=== PATIENT | female | born 1950 | race American Indian/Alaskan Native ===

== ENCOUNTER 2021-10-25 07:28 | Emergency (ER) | payer SELFPAY ==
[2021-10-25] MEDS ORDERED: LIP THERAPY VASELINE TP PRN (07:49)
[2021-10-25] MEDS ORDERED: SODIUM CHLORIDE 0.9% 1000 ML 2,000 ML ONE ×2 (07:49)
[2021-10-25] MEDS ORDERED: MINERAL OIL/PETROLATUM, WHITE OPHTH OINT 3.5 GM OU PRN (07:49)
[2021-10-25] MEDS ORDERED: SODIUM CHLORIDE 0.9% 1000 ML 1,000 ML IV ONE ×2 (07:54→08:35)
--- NOTE | 2021-10-25 07:59 | Emergency Department Report ---
ED CPR HPI - General Stated Complaint: CARDIAC ARREST Time Seen by Provider: 10/25/21 07:49 Source: EMS Mode of arrival: Stretcher Limitations: Altered Mental Status, Physical Limitation - History of Present Illness Initial Comments: 70-year-old female with an unknown past medical history presents to the hospital after witnessed cardiac arrest at the airport while disembarking a flight from [facility]. Patient apparently leaned up against a wall of the jet way and passed out. EMS at the scene at 6:50 AM and report initial rhythm was asystole. And provided CPR and 1 dose of epinephrine at 6:55 AM. Patient had return of spontaneous circulation immediately however, lost her pulse again in route to the hospital at approximately 7:11 AM and received second dose of epinephrine with again and spontaneous circulation. Patient presents to the ED with a narrow complex rhythm with a palpable pulse. She is intubated with the I gel airway upon arrival. Reported accucheck 163. Daughter reports history of hypertension and no drug allergies ED Review of Systems ROS: Stated complaint: CARDIAC ARREST Other details as noted in HPI Comment: Unobtainable due to pts medical conditions ED Physical Exam - Other Other exam information: General: Lumbar spine Head: Atraumatic Eyes: Pupils approximately 3 mm and reactive, equal ENT: Moist mucous membranes, orally intubated with I gel airway Neck: Normal appearance, no midline tenderness Chest: Clear to auscultation bilaterally with bagging CV: Regular rate and rhythm, palpable pulse Abdomen: Soft, normal bowel sounds, nontender, nondistended, no rebound or guarding Back: Normal inspection Extremity: Normal inspection Neuro: GCS 3 upon arrival Psych: Unresponsive Skin: No rash, warm to touch ED Course Vital Signs 10/25/21 10/25/21 10/25/21 07:50 08:00 09:00 Temperature 97.8 F Pulse Rate 70 78 71 Respiratory 12 16 Rate Blood Pressure 121/72 144/92 114/67 O2 Sat by Pulse 98 100 96 Oximetry 10/25/21 10/25/21 10/25/21 09:51 10:00 11:53 Temperature Pulse Rate 59 L 62 66 Respiratory 16 16 16 Rate Blood Pressure 90/57 129/81 117/74 O2 Sat by Pulse 100 99 100 Oximetry - Reevaluation(s) Reevaluation #1: 10/25/21 09:45 Spoke to patient's daughters (Josemanuel Tilley and Sandra Catherine) via phone and provided update regarding current medical condition status postcardiac arrest and currently on ventilator. Both of her daughters reside in [place]. [place] is boarding a plane and headed to [place] with arrival scheduled in approx 2 hours. Contact info provided to registration 10/25/21 - Consultations Consultation #1: 10/25/21 10:33 call placed to [facility] transfer, awaiting call back from vascular surgeon 10/25/21 11:[address] Loera CT surgeon at [facility], awaiting bed assigned 10/25/21 12:45 Case discussed with cardiothoracic surgery at [facility]. Dr. Aranda was to CT surgeon. Unfortunately they cannot accept patient at this time because they are over capacity. Patient will be placed on the waiting list but is unlikely that bed will be available today 12: 55 [place] [facility] is on diversion except for trauma and acute stroke intervention 1 PM: [facility] is on total diversion 1:51 PM: [facility] called with a bed, transport will be here in 5 min. Daughter at bedside Informed. 10/25/21 14:00 case d/w ICU LYDIA [facility] at [facility] - Central Line Placement Right Femoral Consent Obtained: emergent situation Time Out Performed: Yes Patient Placed on Monitor/Pulse Ox: Yes MD Prep: mask, gown, gloves Central Line Prep: Chlorhexidine scrub, sterile drapes applied Local Anesthesia Used: other anesthetic Ultrasound Used for Placement: No Central Line Lumen Inserted: triple Reason for Insertion: Emergency Venous Access Bloods Obtained for Lab: Yes Central Line Position: good blood return, all ports aspirated, flus, sutured in place with nyl Dressing Applied: Tegaderm Patient Tolerated Procedure: well, no complications Complications: none - Intubation Time Out Performed: Yes Sedative: Etomidate Mg Given: 20 Paralytic: Succinylcholine Mg Given: 100 Laryngoscope: fiberoptic video scope Size: 3 ET Tube Size: 7.5 Tube Secured Depth (cm): 23 Tube Secured Location: teeth Tube Placement Confirmation: visualized tube passing t, equal breath sounds bilat, no breath sounds over epi, confirmation by capnometr Patient Tolerated Procedure: well, no complications Intubation Complications: none ED Medical Decision Making - Lab Data Result diagrams: 10/25/21 Unknown 10/25/21 Unknown Lab Results 10/25/21 10/25/21 10/25/21 Range/Units 07:37 08:45 10:06 WBC (4.5-11.0) K/mm3 RBC (3.65-5.03) M/mm3 Hgb (10.1-14.3) gm/dl Hct (30.3-42.9) % MCV (79-97) fl MCH (28-32) pg MCHC (30-34) % RDW (13.2-15.2) % Plt Count (140-440) K/mm3 Lymph % (Auto) (13.4-35.0) % [place] % (Auto) (0.0-7.3) % Eos % (Auto) (0.0-4.3) % Baso % (Auto) (0.0-1.8) % Lymph # (Auto) (1.2-5.4) K/mm3 [place] # (Auto) (0.0-0.8) K/mm3 Eos # (Auto) (0.0-0.4) K/mm3 Baso # (Auto) (0.0-0.1) K/mm3 Seg Neutrophils % (40.0-70.0) % Seg Neutrophils # (1.8-7.7) K/mm3 PT (12.2-14.9) Sec. INR (0.87-1.13) APTT (24.2-36.6) Sec. D-Dimer (0-234) ng/mlDDU ABG pH 7.345 L (7.350-7.450) pH Units ABG pCO2 34.3 mm Hg ABG pO2 86.5 (80.0-90.0) mm Hg ABG HCO3 18.3 L (20.0-26.0) mmol/L ABG O2 Saturation 96.7 (95.0-99.0) % ABG O2 Content 16.3 (0.0-44) ABG Base Excess -6.6 L (-2.0-3.0) mmol/L ABG Hemoglobin 12.1 (12.0-16.0) gm/dl ABG Carboxyhemoglobin 1.0 (0.0-5.0) % ABG Methemoglobin 0.4 (0.0-1.5) % Oxyhemoglobin 95.4 (95.0-99.0) % FiO2 50 % Sodium (137-145) mmol/L Potassium (3.6-5.0) mmol/L Chloride (98-107) mmol/L Carbon Dioxide (22-30) mmol/L Anion Gap mmol/L BUN (7-17) mg/dL Creatinine (0.6-1.2) mg/dL Estimated GFR ml/min BUN/Creatinine Ratio % Glucose (65-100) mg/dL POC Glucose 257 H (70-105) mg/dL Lactic Acid (0.7-2.0) mmol/L Calcium (8.4-10.2) mg/dL Magnesium (1.7-2.3) mg/dL Total Bilirubin (0.1-1.2) mg/dL AST (5-40) units/L ALT (7-56) units/L Alkaline Phosphatase (35-129) units/L Troponin T 0.072 H D (0.00-0.029) ng/mL Total Protein (6.3-8.2) g/dL Albumin (3.9-5) g/dL Albumin/Globulin Ratio % Triglycerides 95 (2-149) mg/dL Cholesterol 205 H (50-199) mg/dL LDL Cholesterol Direct 114 (50-130) mg/dL HDL Cholesterol 76 H (40-59) mg/dL Cholesterol/HDL Ratio 2.69 % Urine Color (Yellow) Urine Turbidity (Clear) Urine pH (5.0-7.0) Ur Specific [place] (1.003-1.030) Urine Protein (Negative) mg/dL Urine Glucose (UA) (Negative) mg/dL Urine Ketones (Negative) mg/dL Urine Blood (Negative) Urine Nitrite (Negative) Urine Bilirubin (Negative) Urine Urobilinogen (<2.0) mg/dL Ur Leukocyte Esterase (Negative) Urine WBC (Auto) (0.0-6.0) /HPF Urine RBC (Auto) (0.0-6.0) /HPF U Epithel Cells (Auto) (0-13.0) /HPF Urine Bacteria (Auto) (Negative) /HPF Urine Mucus /HPF Urine Opiates Screen Urine Methadone Screen Ur Barbiturates Screen Ur Phencyclidine Scrn Ur Amphetamines Screen U Benzodiazepines Scrn Urine Cocaine Screen U Marijuana (THC) Screen Drugs of Abuse Note 05/10/25/21 10/25/21 Range/Units 10:06 Unknown Unknown WBC 15.0 H (4.5-11.0) K/mm3 RBC 4.29 (3.65-5.03) M/mm3 Hgb 11.4 (10.1-14.3) gm/dl Hct 36.8 (30.3-42.9) % MCV 86 (79-97) fl MCH 27 L (28-32) pg MCHC 31 (30-34) % RDW 16.1 H (13.2-15.2) % Plt Count 182 (140-440) K/mm3 Lymph % (Auto) 20.8 (13.4-35.0) % [place] % (Auto) 2.2 (0.0-7.3) % Eos % (Auto) 1.6 (0.0-4.3) % Baso % (Auto) 0.2 (0.0-1.8) % Lymph # (Auto) 3.1 (1.2-5.4) K/mm3 [place] # (Auto) 0.3 (0.0-0.8) K/mm3 Eos # (Auto) 0.2 (0.0-0.4) K/mm3 Baso # (Auto) 0.0 (0.0-0.1) K/mm3 Seg Neutrophils % 75.2 H (40.0-70.0) % Seg Neutrophils # 11.3 H (1.8-7.7) K/mm3 PT 18.0 H (12.2-14.9) Sec. INR 1.32 H (0.87-1.13) APTT 49.4 H (24.2-36.6) Sec. D-Dimer > 55879 H (0-234) ng/mlDDU ABG pH (7.350-7.450) pH Units ABG pCO2 mm Hg ABG pO2 (80.0-90.0) mm Hg ABG HCO3 (20.0-26.0) mmol/L ABG O2 Saturation (95.0-99.0) % ABG O2 Content (0.0-44) ABG Base Excess (-2.0-3.0) mmol/L ABG Hemoglobin (12.0-16.0) gm/dl ABG Carboxyhemoglobin (0.0-5.0) % ABG Methemoglobin (0.0-1.5) % Oxyhemoglobin (95.0-99.0) % FiO2 % Sodium (137-145) mmol/L Potassium (3.6-5.0) mmol/L Chloride (98-107) mmol/L Carbon Dioxide (22-30) mmol/L Anion Gap mmol/L BUN (7-17) mg/dL Creatinine (0.6-1.2) mg/dL Estimated GFR ml/min BUN/Creatinine Ratio % Glucose (65-100) mg/dL POC Glucose (70-105) mg/dL Lactic Acid 4.70 H* (0.7-2.0) mmol/L Calcium (8.4-10.2) mg/dL Magnesium (1.7-2.3) mg/dL Total Bilirubin (0.1-1.2) mg/dL AST (5-40) units/L ALT (7-56) units/L Alkaline Phosphatase (35-129) units/L Troponin T (0.00-0.029) ng/mL Total Protein (6.3-8.2) g/dL Albumin (3.9-5) g/dL Albumin/Globulin Ratio % Triglycerides (2-149) mg/dL Cholesterol (50-199) mg/dL LDL Cholesterol Direct (50-130) mg/dL HDL Cholesterol (40-59) mg/dL Cholesterol/HDL Ratio % Urine Color (Yellow) Urine Turbidity (Clear) Urine pH (5.0-7.0) Ur Specific [place] (1.003-1.030) Urine Protein (Negative) mg/dL Urine Glucose (UA) (Negative) mg/dL Urine Ketones (Negative) mg/dL Urine Blood (Negative) Urine Nitrite (Negative) Urine Bilirubin (Negative) Urine Urobilinogen (<2.0) mg/dL Ur Leukocyte Esterase (Negative) Urine WBC (Auto) (0.0-6.0) /HPF Urine RBC (Auto) (0.0-6.0) /HPF U Epithel Cells (Auto) (0-13.0) /HPF Urine Bacteria (Auto) (Negative) /HPF Urine Mucus /HPF Urine Opiates Screen Urine Methadone Screen Ur Barbiturates Screen Ur Phencyclidine Scrn Ur Amphetamines Screen U Benzodiazepines Scrn Urine Cocaine Screen U Marijuana (THC) Screen Drugs of Abuse Note 10/25/21 10/25/21 10/25/21 Range/Units Unknown Unknown Unknown WBC (4.5-11.0) K/mm3 RBC (3.65-5.03) M/mm3 Hgb (10.1-14.3) gm/dl Hct (30.3-42.9) % MCV (79-97) fl MCH (28-32) pg MCHC (30-34) % RDW (13.2-15.2) % Plt Count (140-440) K/mm3 Lymph % (Auto) (13.4-35.0) % [place] % (Auto) (0.0-7.3) % Eos % (Auto) (0.0-4.3) % Baso % (Auto) (0.0-1.8) % Lymph # (Auto) (1.2-5.4) K/mm3 [place] # (Auto) (0.0-0.8) K/mm3 Eos # (Auto) (0.0-0.4) K/mm3 Baso # (Auto) (0.0-0.1) K/mm3 Seg Neutrophils % (40.0-70.0) % Seg Neutrophils # (1.8-7.7) K/mm3 PT (12.2-14.9) Sec. INR (0.87-1.13) APTT (24.2-36.6) Sec. D-Dimer (0-234) ng/mlDDU ABG pH (7.350-7.450) pH Units ABG pCO2 mm Hg ABG pO2 (80.0-90.0) mm Hg ABG HCO3 (20.0-26.0) mmol/L ABG O2 Saturation (95.0-99.0) % ABG O2 Content (0.0-44) ABG Base Excess (-2.0-3.0) mmol/L ABG Hemoglobin (12.0-16.0) gm/dl ABG Carboxyhemoglobin (0.0-5.0) % ABG Methemoglobin (0.0-1.5) % Oxyhemoglobin (95.0-99.0) % FiO2 % Sodium 137 (137-145) mmol/L Potassium 4.3 (3.6-5.0) mmol/L Chloride 103.1 (98-107) mmol/L Carbon Dioxide 16 L (22-30) mmol/L Anion Gap 22 mmol/L BUN 19 H (7-17) mg/dL Creatinine 1.3 H (0.6-1.2) mg/dL Estimated GFR 41 ml/min BUN/Creatinine Ratio 15 % Glucose 256 H (65-100) mg/dL POC Glucose (70-105) mg/dL Lactic Acid (0.7-2.0) mmol/L Calcium 9.4 (8.4-10.2) mg/dL Magnesium 2.10 (1.7-2.3) mg/dL Total Bilirubin 0.30 (0.1-1.2) mg/dL AST 246 H (5-40) units/L ALT 127 H (7-56) units/L Alkaline Phosphatase 83 (35-129) units/L Troponin T < 0.010 (0.00-0.029) ng/mL Total Protein 6.0 L (6.3-8.2) g/dL Albumin 3.6 L (3.9-5) g/dL Albumin/Globulin Ratio 1.5 % Triglycerides (2-149) mg/dL Cholesterol (50-199) mg/dL LDL Cholesterol Direct (50-130) mg/dL HDL Cholesterol (40-59) mg/dL Cholesterol/HDL Ratio % Urine Color Yellow (Yellow) Urine Turbidity Cloudy (Clear) Urine pH 6.0 (5.0-7.0) Ur Specific [place] 1.018 (1.003-1.030) Urine Protein 30 mg/dl (Negative) mg/dL Urine Glucose (UA) Neg (Negative) mg/dL Urine Ketones Neg (Negative) mg/dL Urine Blood Neg (Negative) Urine Nitrite Neg (Negative) Urine Bilirubin Neg (Negative) Urine Urobilinogen < 2.0 (<2.0) mg/dL Ur Leukocyte Esterase Lg (Negative) Urine WBC (Auto) 77.0 H (0.0-6.0) /HPF Urine RBC (Auto) 7.0 (0.0-6.0) /HPF U Epithel Cells (Auto) 38.0 H (0-13.0) /HPF Urine Bacteria (Auto) 4+ (Negative) /HPF Urine Mucus 3+ /HPF Urine Opiates Screen Negative Urine Methadone Screen Negative Ur Barbiturates Screen Negative Ur Phencyclidine Scrn Negative Ur Amphetamines Screen Negative U Benzodiazepines Scrn Negative Urine Cocaine Screen Negative U Marijuana (THC) Screen Negative Drugs of Abuse Note Disclamer 10/25/21 Range/Units Unknown WBC (4.5-11.0) K/mm3 RBC (3.65-5.03) M/mm3 Hgb (10.1-14.3) gm/dl Hct (30.3-42.9) % MCV (79-97) fl MCH (28-32) pg MCHC (30-34) % RDW (13.2-15.2) % Plt Count (140-440) K/mm3 Lymph % (Auto) (13.4-35.0) % [place] % (Auto) (0.0-7.3) % Eos % (Auto) (0.0-4.3) % Baso % (Auto) (0.0-1.8) % Lymph # (Auto) (1.2-5.4) K/mm3 [place] # (Auto) (0.0-0.8) K/mm3 Eos # (Auto) (0.0-0.4) K/mm3 Baso # (Auto) (0.0-0.1) K/mm3 Seg Neutrophils % (40.0-70.0) % Seg Neutrophils # (1.8-7.7) K/mm3 PT (12.2-14.9) Sec. INR (0.87-1.13) APTT (24.2-36.6) Sec. D-Dimer (0-234) ng/mlDDU ABG pH (7.350-7.450) pH Units ABG pCO2 mm Hg ABG pO2 (80.0-90.0) mm Hg ABG HCO3 (20.0-26.0) mmol/L ABG O2 Saturation (95.0-99.0) % ABG O2 Content (0.0-44) ABG Base Excess (-2.0-3.0) mmol/L ABG Hemoglobin (12.0-16.0) gm/dl ABG Carboxyhemoglobin (0.0-5.0) % ABG Methemoglobin (0.0-1.5) % Oxyhemoglobin (95.0-99.0) % FiO2 % Sodium (137-145) mmol/L Potassium (3.6-5.0) mmol/L Chloride (98-107) mmol/L Carbon Dioxide (22-30) mmol/L Anion Gap mmol/L BUN (7-17) mg/dL Creatinine (0.6-1.2) mg/dL Estimated GFR ml/min BUN/Creatinine Ratio % Glucose (65-100) mg/dL POC Glucose (70-105) mg/dL Lactic Acid 8.80 H* (0.7-2.0) mmol/L Calcium (8.4-10.2) mg/dL Magnesium (1.7-2.3) mg/dL Total Bilirubin (0.1-1.2) mg/dL AST (5-40) units/L ALT (7-56) units/L Alkaline Phosphatase (35-129) units/L Troponin T (0.00-0.029) ng/mL Total Protein (6.3-8.2) g/dL Albumin (3.9-5) g/dL Albumin/Globulin Ratio % Triglycerides (2-149) mg/dL Cholesterol (50-199) mg/dL LDL Cholesterol Direct (50-130) mg/dL HDL Cholesterol (40-59) mg/dL Cholesterol/HDL Ratio % Urine Color (Yellow) Urine Turbidity (Clear) Urine pH (5.0-7.0) Ur Specific [place] (1.003-1.030) Urine Protein (Negative) mg/dL Urine Glucose (UA) (Negative) mg/dL Urine Ketones (Negative) mg/dL Urine Blood (Negative) Urine Nitrite (Negative) Urine Bilirubin (Negative) Urine Urobilinogen (<2.0) mg/dL Ur Leukocyte Esterase (Negative) Urine WBC (Auto) (0.0-6.0) /HPF Urine RBC (Auto) (0.0-6.0) /HPF U Epithel Cells (Auto) (0-13.0) /HPF Urine Bacteria (Auto) (Negative) /HPF Urine Mucus /HPF Urine Opiates Screen Urine Methadone Screen Ur Barbiturates Screen Ur Phencyclidine Scrn Ur Amphetamines Screen U Benzodiazepines Scrn Urine Cocaine Screen U Marijuana (THC) Screen Drugs of Abuse Note - EKG Data -: EKG Interpreted by Me (lafb) EKG shows normal: sinus rhythm (no stemi), ST-T waves (no stemi) Rate: normal - EKG Data When compared to previous EKG there are: previous EKG unavailable - Radiology Data Radiology results: report reviewed CHEST 1 VIEW 10/25/2021 7:10 AM INDICATION / CLINICAL INFORMATION: ETT placement. COMPARISON: None available. FINDINGS: SUPPORT DEVICES: The endotracheal tube terminates 5 cm superior to the brigida. Nasogastric tube is followed to the mid stomach although the distal tip is not included. Cardiac defibrillator pads overlie the heart shadow. HEART / MEDIASTINUM: Mild cardiomegaly. LUNGS / PLEURA: No significant pulmonary or pleural abnormality. No pneumothorax. ADDITIONAL FINDINGS: No significant additional findings. IMPRESSION: 1. Adequate placement of the endotracheal tube. 2. Mild cardiomegaly. CT BRAIN: 10/25/2021 INDICATION / CLINICAL INFORMATION: COLLAPSE, POST ARREST. COMPARISON: None available. FINDINGS: BRAIN/INTRACRANIAL STRUCTURES: Unenhanced CT images of the brain demonstrate no evidence of acute abnormality. Ventricles and sulci are normal in size and shape. There is no evidence of hemorrhage or mass. There are no abnormal extra-axial fluid collections. There is a tube coiled in the posterior aspect of the oral pharynx. EXTRACRANIAL STRUCTURES: Unremarkable. IMPRESSION: No acute intracranial abnormality. Tubing coiled posterior oropharynx. CT CERVICAL SPINE: 10/25/2021 INDICATION / CLINICAL INFORMATION: COLLAPSE, POST ARREST. COMPARISON: None available. FINDINGS: CT images of the cervical spine were obtained. Images are evaluated in the axial, coronal, and sagittal planes. Is no evidence of acute abnormality. Reversal of cervical lordosis is centered at the C5 level with the patient positioned for this exam. Vertebral body height and alignment is well preserved. There is no evidence of fracture. CRANIOCERVICAL JUNCTION: Unremarkable. PARASPINAL STRUCTURES: Endotracheal tube and nasogastric tube are present. The upper portion of the nasogastric tube appears to be coiled in the posterior oropharynx. CTA CHEST, ABDOMEN, AND PELVIS WITH CONTRAST INDICATION / CLINICAL INFORMATION: COLLAPSE, POST ARREST 100 ML OMNI 350 . TECHNIQUE: Axial CT images were obtained through the chest, abdomen, and pelvis after injection of 100 cc of Omnipaque 350 IV contrast. 3 plane MIP and/or 3D reconstructions were produced. All CT scans at this location are performed using CT dose reduction for ALARA by means of automated exposure control. COMPARISON: None available. FINDINGS: Chest: There is acute intramural hematoma extending from the distal ascending aorta, through the arch and distally to the distal descending thoracic aorta. Small ulcer-like area of intimal disruption is seen in the distal arch past the level of the left subclavian artery origin, measuring 1.3 cm (series 2 image 33). There is dissection extending from the distal arch to the right iliac bifurcation, as detailed below. The thoracic aorta is nondilated. There is moderate mediastinal hematoma and moderate volume high density pericardial fluid, likely reflecting hemopericardium. The great vessels appear patent. No central or segmental pulmonary embolus. Small left and trace right pleural effusions with bibasilar volume loss and mild scattered interstitial edema. No pneumothorax. No acute osseous findings. Endotracheal tube terminates in the midtrachea. Abdomen/pelvis: Dissection extends from the chest (detailed above) to the level of the right iliac bifurcation. There is no dissection flap extending into the left iliac vessels. The celiac, SMA, and left renal artery are supplied by the true lumen. The right renal artery is poorly opacified and at least partially occluded. SHA is not seen. Dissection of the right common iliac artery, likely extending into the origin of the right external iliac artery. The iliac vessels are patent. Nonspecific mild periportal edema. Gallbladder, pancreas, spleen, and adrenals are unremarkable. There is mild diminished enhancement of the right kidney, concerning for early renal infarct. No hydronephrosis. Hatch catheter decompresses the bladder. Enteric catheter terminates in the stomach. Stomach and small bowel are normal in caliber. No small bowel inflammation. There is moderate stool and fluid distending the colon without significant colonic wall thickening. Normal appendix. No intraperitoneal free air. No free fluid or organized collection. No acute osseous findings. Right iliac catheter extends to the distal right iliac vein. IMPRESSION: 1. Acute aortic injury with prominent intramural hematoma extending from the distal ascending aorta to the distal descending thoracic aorta with moderate mediastinal hematoma and hemopericardium. 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 2. 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 3. Small left and trace right pleural effusions with bibasilar volume loss or edema. 4. Moderate stool and fluid distended colon without significant bowel wall thickening to suggest bowel ischemia. 5. Satisfactory position of support devices, as above. - Medical Decision Making 70-year-old female presents to the hospital status post cardiopulmonary arrest. Patient presented with I gel airway and was intubated shortly after ED arrival. Central line placed. Patient received normal saline IV fluid bolus as well as propofol drip for sedation. ED work-up reveals significant aortic dissection with intramural thrombus, hemomediastinum and hemopericardium. Patient maintained vital signs without vasopressor support in the ED and systolic remained less than 150. Daughter flew from [place] and presented to the ED. Patient required transport to facility with cardiovascular surgeons who can perform acute intervention for the aortic dissection. I called multiple facilities for emergent transfer due to need for cardiothoracic surgery and vascular surgery. patient has been accepted and will be transferred to [facility]. Lactic acidosis noticed likely secondary to tissue ischemia due to cardiopulmonary arrest. Trending downward with IV hydration ABG shows mild metabolic acidosis. Saturating adequately on 50% FiO2 Second troponin mildly elevated compared to first blood draw Juanito Abernathy provided a copy of aortic dissection discharge instructions for education about her mother's diagnosis Critical Care Time: Yes Critical care time in (mins) excluding proc time.: 75 Critical care attestation.: If time is entered above; I have spent that time in minutes in the direct care of this critically ill patient, excluding procedure time. Critical Care Time: 75 Minutes of critical care time excluding procedures were used in the care of the patient. I came immediately to the bedside upon patient's arrival. I obt ained history from EMS at the bedside. I discussed treatment plan with the nursing team members.I spoke with family to obtain medical history. Patient required multiple interventions and reassessments. Multiple calls were made to facilities for emergent transfer ED Disposition Clinical Impression: Acute thoracic aortic dissection, Cardiopulmonary arrest with successful resuscitation Disposition: 02 [facility] Is pt being admited?: No Condition: Serious Referrals: PRIMARY CARE, [Primary Care Provider] - 3-5 Days Time of Disposition: 14:04 (accepted to [facility])
[2021-10-25 08:13] LABS: Basophils % (Auto) 0.2 % (0.0-1.8); Eosinophils # (Auto) 0.2 K/mm3 (0.0-0.4); Eosinophils % (Auto) 1.6 % (0.0-4.3); Hematocrit 36.8 % (30.3-42.9); Hemoglobin 11.4 gm/dl (10.1-14.3); Lymphocytes # (Auto) 3.1 K/mm3 (1.2-5.4); Lymphocytes % (Auto) 20.8 % (13.4-35.0); Mean Corpuscular HGB Conc 31 % (30-34); Mean Corpuscular Volume 86 fl (79-97); Monocytes # (Auto) 0.3 K/mm3 (0.0-0.8); Monocytes % (Auto) 2.2 % (0.0-7.3); Platelet Count 182 K/mm3 (140-440); Red Blood Count 4.29 M/mm3 (3.65-5.03); Red Cell Distribution Width 16.1 % (13.2-15.2)
--- NOTE | 2021-10-25 08:16 | XRay Report ---
CHEST 1 VIEW 10/25/2021 7:10 AM INDICATION / CLINICAL INFORMATION: ETT placement. COMPARISON: None available. FINDINGS: SUPPORT DEVICES: The endotracheal tube terminates 5 cm superior to the brigida. Nasogastric tube is fo llowed to the mid stomach although the distal tip is not included. Cardiac defibrillator pads overlie the heart shadow. HEART / MEDIASTINUM: Mild cardiomegaly. LUNGS / PLEURA: No significant pulmonary or pleural abnormality. No pneumothorax. ADDITIONAL FINDINGS: No significant additional findings. IMPRESSION: 1. Adequate placement of the endotracheal tube. 2. Mild cardiomegaly. Signer Name: Pastor Husain Jr, MD Signed: 10/25/2021 8:12 AM Workstation Name: [id number]
[2021-10-25 08:23] LABS: Amphetamine Screen,Urine Negative; Bacteria,Urine 4+ /HPF (Negative); Benzodiazepines Screen,Urine Negative; Bilirubin,Urine NEG (Negative); Blood,Urine NEG (Negative); Cannabinoid Screen,Urine Negative; Cocaine Screen,Urine Negative; Color,Urine Yellow (Yellow); INR 1.32 (0.87-1.13); Methadone Screen,Urine Negative; Mucus,Urine 3+ /HPF; Opiate Screen,Urine Negative; Urobilinogen,Urine < 2.0 mg/dL (<2.0)
[2021-10-25 08:24] LABS: Partial Thromboplastin Time 49.4 Sec. (24.2-36.6)
[2021-10-25 08:27] LABS: Alanine Aminotransferase 127 units/L (7-56); Albumin 3.6 g/dL (3.9-5); BUN/Creatinine Ratio 15; Blood Urea Nitrogen 19 mg/dL (7-17); Calcium 9.4 mg/dL (8.4-10.2); Hemolysis Index 15
[2021-10-25 09:10] LABS: ABG Base Excess -6.6 mmol/L (-2.0-3.0); ABG HCO3 18.3 mmol/L (20.0-26.0); ABG Methemoglobin 0.4 % (0.0-1.5); ABG Oxygen Saturation 96.7 % (95.0-99.0); ABG PCO2 34.3 mm Hg; ABG PH 7.345 pH Units (7.350-7.450); ABG PO2 86.5 mm Hg (80.0-90.0)
[2021-10-25] MEDS ORDERED: FAMOTIDINE 20 MG/2 ML INJ IV SCH (10:00)
[2021-10-25] MEDS ORDERED: SENNOSIDES/DOCUSATE SODIUM 8.6/50 MG TAB FEEDTUBE SCH (10:00)
--- NOTE | 2021-10-25 10:12 | Cat Scan Report ---
CT BRAIN: 10/25/2021 INDICATION / CLINICAL INFORMATION: COLLAPSE, POST ARREST. COMPARISON: None available. FINDINGS: BRAIN/INTRACRANIAL STRUCTURES: Unenhanced CT images of the brain demonstrate no evidence of acute abn ormality. Ventricles and sulci are normal in size and shape. There is no evidence of hemorrhage or mass. There are no abnormal extra-axial fluid collections. There is a tube coiled in the posterior aspect of the oral pharynx. EXTRACRANIAL STRUCTURES: Unremarkable. IMPRESSION: No acute intracranial abnormality. Tubing coiled posterior oropharynx. All CT scans at this location are performed using dose reduction to ALARA by means of automated expos ure control. Signer Name: Benjamin Lewis MD Signed: 10/25/2021 10:08 AM Workstation Name: [id number]
--- NOTE | 2021-10-25 10:15 | Cat Scan Report ---
CT CERVICAL SPINE: 10/25/2021 INDICATION / CLINICAL INFORMATION: COLLAPSE, POST ARREST. COMPARISON: None available. FINDINGS: CT images of the cervical spine were obtained. Images are evaluated in the axial, coronal, and sagitt al planes. Is no evidence of acute abnormality. Reversal of cervical lordosis is centered at the C5 level with the patient positioned for this exam. Vertebral body height and alignment is well preserved. There is no evidence of fracture. CRANIOCERVICAL JUNCTION: Unremarkable. PARASPINAL STRUCTURES: Endotracheal tube and nasogastric tube are present. The upper portion of the n asogastric tube appears to be coiled in the posterior oropharynx. There is evidence of left pleural effusion and left pulmonary apical atelectasis. IMPRESSION: No acute cervical spine abnormality. All CT scans at this location are performed using dose reduction to ALARA by means of automated expos ure control. Signer Name: Benjamin Lewis MD Signed: 10/25/2021 10:10 AM Workstation Name: [id number]
--- NOTE | 2021-10-25 10:24 | Cat Scan Report ---
CTA CHEST, ABDOMEN, AND PELVIS WITH CONTRAST INDICATION / CLINICAL INFORMATION: COLLAPSE, POST ARREST 100 ML OMNI 350 . TECHNIQUE: Axial CT images were obtained through the chest, abdomen, and pelvis after injection of 100 cc of Omn ipaque 350 IV contrast. 3 plane MIP and/or 3D reconstructions were produced. All CT scans at this loc ation are performed using CT dose reduction for ALARA by means of automated exposure control. COMPARISON: None available. FINDINGS: Chest: There is acute intramural hematoma extending from the distal ascending aorta, through the arch and distally to the distal descending thoracic aorta. Small ulcer-like area of intimal disruption is seen in the distal arch past the level of the left subclavian artery origin, measuring 1.3 cm (serie s 2 image 33). There is dissection extending from the distal arch to the right iliac bifurcation, as detailed below. The thoracic aorta is nondilated. There is moderate mediastinal hematoma and moderate volume high density pericardial fluid, likely reflecting hemopericardium. The great vessels appear p atent. No central or segmental pulmonary embolus. Small left and trace right pleural effusions with bibasilar volume loss and mild scattered interstiti al edema. No pneumothorax. No acute osseous findings. Endotracheal tube terminates in the midtrachea. Abdomen/pelvis: Dissection extends from the chest (detailed above) to the level of the right iliac bi furcation. There is no dissection flap extending into the left iliac vessels. The celiac, SMA, and le ft renal artery are supplied by the true lumen. The right renal artery is poorly opacified and at dc st partially occluded. SHA is not seen. Dissection of the right common iliac artery, likely extending into the origin of the right external iliac artery. The iliac vessels are patent. Nonspecific mild periportal edema. Gallbladder, pancreas, spleen, and adrenals are unremarkable. Ther e is mild diminished enhancement of the right kidney, concerning for early renal infarct. No hydronep hrosis. Hatch catheter decompresses the bladder. Enteric catheter terminates in the stomach. Stomach and small bowel are normal in caliber. No small bowel inflammation. There is moderate stool and fluid distending the colon without significant colonic wall thickening. Normal appendix. No intraperitonea l free air. No free fluid or organized collection. No acute osseous findings. Right iliac catheter ex tends to the distal right iliac vein. IMPRESSION: 1. Acute aortic injury with prominent intramural hematoma extending from the distal ascending aorta t o the distal descending thoracic aorta with moderate mediastinal hematoma and hemopericardium. 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 2. 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 3. Small left and trace right pleural effusions with bibasilar volume loss or edema. 4. Moderate stool and fluid distended colon without significant bowel wall thickening to suggest jazmin l ischemia. 5. Satisfactory position of support devices, as above. CRITICAL RESULT: Time of Discovery (PULP OPERATOR/CDT): 10/25/2021 at 9:10 AM Time of Communication (PULP OPERATOR/CDT): 10/25/2021 at 9:12 AM Licensed Practitioner Receiving Report: Dr. Mckay Read-Back Performed: Yes. Signer Name: Adithya Huerta MD Signed: 10/25/2021 10:19 AM Workstation Name: [id number]
[2021-10-25 11:02] LABS: Chol/HDL Ratio 2.69 %
[2021-10-25 11:57] VITALS: BP 117/74
== END 2021-10-25 14:21 | disposition short-term general hospital (02) ==
LOC: ED 07:28
DX: I71.01 Dissection of thoracic aorta (principal); I46.9 Cardiac arrest, cause unspecified; Z79.899 Other long term (current) drug therapy
CPT/HCPCS: 31500; 36415; 36556; 70450; 71045; 71275; 72125; 74177; 80053; 80061; 80307; 81001; 82140; 82803; 82962; 83735; 84484; 85025; 85379; 85610; 85730; 87086; 92950; 93005; 96360; 99291; J2704; J7030; Q9967; 94002; 99285; J3490